=== PATIENT | female | born 1995 | race Two or more races ===

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

== ENCOUNTER → 2019-06-13 | Emergency (ER) | payer BC, MEDICAID ==
[~2019-06-13] VITALS: Ht 157.5 cm; Wt 78.0 kg
[~2019-06-13] MED LIST: ALBUTEROL SULF 2.5 MG/0.5ML(0.5%) NEB SOLN NEB ONE; methylPREDNISolone SOD SUCC 125 MG/2 ML VL IM ONE
[2019-06-14 00:34] VITALS: BP 106/55
== END | disposition home or self-care (01) ==
LOC: ER 22:33
DX: T78.40XA Allergy, unspecified, initial encounter (principal); T50.905A Adverse effect of unspecified drugs, medicaments and biological substances, initial encounter; E78.5 Hyperlipidemia, unspecified; Z88.0 Allergy status to penicillin; Z91.018 Allergy to other foods; Z88.8 Allergy status to other drugs, medicaments and biological substances; X58.XXXA Exposure to other specified factors, initial encounter; Y92.89 Other specified places as the place of occurrence of the external cause
CPT/HCPCS: 94640; 96372; 99283; J2930

== ENCOUNTER 2021-03-07 15:51 | Emergency (ER) | payer BC, MEDICAID ==
[~2021-03-07] VITALS: Ht 157.5 cm; Wt 83.9 kg
[2021-03-07 17:17] VITALS: BP 134/84
[2021-03-07] MEDS ORDERED: IBUP800T27 PO (18:10)
== END 2021-03-07 18:15 | disposition home or self-care (01) ==
LOC: ER 15:51
DX: S16.1XXA Strain of muscle, fascia and tendon at neck level, initial encounter (principal); Z88.0 Allergy status to penicillin; V43.62XA Car passenger injured in collision with other type car in traffic accident, initial encounter; Y93.89 Activity, other specified; Y92.488 Other paved roadways as the place of occurrence of the external cause; Y99.8 Other external cause status
CPT/HCPCS: 72040

== ENCOUNTER → 2022-12-23 | Outpatient (CLI) | payer MEDICAID ==
[~2022-12-23] MED LIST changes: -ALBUTEROL SULF 2.5 MG/0.5ML(0.5%) NEB SOLN NEB ONE; +IBUP-1456 PO; -methylPREDNISolone SOD SUCC 125 MG/2 ML VL IM ONE
[2022-12-23 10:48] LABS: Basophils # (auto) 0 10 ^3/uL (0-0.2); Basophils % (auto) 0.3 % (0.0-2.0); Eosinophils # (auto) 0.1 10 ^3/uL (0-0.8); Hematocrit 41.5 % (36.0-46.0); Lymphocytes # (auto) 2.2 10 ^3/uL (0.4-5.4); Mean Corpuscular Hemoglobin 29.4 pg (28.0-32.0); Mean Corpuscular Hgb Conc. 33.8 g/dL (32.0-36.0); Mean Corpuscular Volume 87.1 fL (80.0-100.0); Monocytes # (auto) 0.4 10 ^3/uL (0-1.3); Monocytes % (auto) 4.8 % (0.0-12.0); Neutrophils # (auto) 6.2 10 ^3/uL (1.6-8.6); Neutrophils % (auto) 68.9 % (37.0-80.0); Nucleated Red Blood Cells % 0.2 %; Red Blood Cells 4.76 10^6/uL (4.0-5.20); Red Cell Distribution Width 13.7 % (11.8-14.3)
[2022-12-23 11:28] LABS: Amphetamine Screen, Urine Neg (NEGATIVE); Barbiturate Scree,Urine Neg (NEGATIVE); Benzodiazephine Screen, Urine Neg (NEGATIVE); Cannabinoid Screen, Urine Neg (NEGATIVE); Cocaine Screen, Urine Neg (NEGATIVE); Opiate Scree,Urine Neg (NEGATIVE); Phencyclidine Screen, Urine Neg (NEGATIVE)
[2022-12-24 07:06] LABS: RPR Non Reactive (Non Reactive)
[2022-12-24 22:06] LABS: Chlamydia Trachomatis, NAA Negative (Negative); Neisseria gonorrhoeae, NAA Negative (Negative)
[2022-12-26 04:06] LABS: QuantiFERON-TB Gold Plus Negative (Negative)
== END | disposition home or self-care (01) ==
LOC: LAB 10:18
PROVIDERS: ATTEND Obstetrics & Gynecology
DX: Z34.80 Encounter for supervision of other normal pregnancy, unspecified trimester (principal); N39.0 Urinary tract infection, site not specified; Z36.0 Encounter for antenatal screening for chromosomal anomalies; Z31.430 Encounter of female for testing for genetic disease carrier status for procreative management; Z3A.00 Weeks of gestation of pregnancy not specified
CPT/HCPCS: 36415; 80307; 83036; 84702; 85025; 86592; 86703; 86762; 86850; 86900; 86901; 87086; 87340

== ENCOUNTER 2023-07-19 11:15 | Observation (INO) | payer MEDICAID ==
[~2023-07-19] VITALS: Ht 157.5 cm; Wt 86.2 kg
[2023-07-19 12:34] LABS: Basophils # (auto) 0 10 ^3/uL (0-0.2); Basophils % (auto) 0.2 % (0.0-2.0); Eosinophils # (auto) 0 10 ^3/uL (0-0.8); Eosinophils % (auto) 0.5 % (0.0-7.0); Hematocrit 41.5 % (36.0-46.0); Hemoglobin 14.4 g/dL (12.2-16.2); Lymphocytes # (auto) 1.7 10 ^3/uL (0.4-5.4); Lymphocytes % (auto) 21.1 % (10.0-50.0); Mean Corpuscular Hemoglobin 31.3 pg (28.0-32.0); Mean Corpuscular Hgb Conc. 34.6 g/dL (32.0-36.0); Mean Corpuscular Volume 90.6 fL (80.0-100.0); Monocytes # (auto) 0.5 10 ^3/uL (0-1.3); Monocytes % (auto) 6.2 % (0.0-12.0); Neutrophils # (auto) 5.6 10 ^3/uL (1.6-8.6); Red Blood Cells 4.59 10^6/uL (4.0-5.20); Red Cell Distribution Width 15.3 % (11.8-14.3); White Blood Cell 7.8 10^3/uL (4.4-10.8)
[2023-07-19 12:49] LABS: Alanine Aminotransferase 12 U/L (7-40); Albumin 3.6 g/dL (3.2-4.8); Alkaline Phosphatase 151 U/L (46-116); Anion Gap 11 (5-15); Aspartate Aminotransferase 9 U/L (13-40); BUN/Creatinine Ratio 15.8 (10.0-20.0); Bilirubin, Total 0.6 mg/dL (0.2-1.0); Blood Urea Nitrogen 6 mg/dL (9-23); Calcium 9.1 mg/dL (8.7-10.4); Carbon Dioxide 20 mmol/L (20-30); Chloride 107 mmol/L (98-107); Glucose 85 mg/dL (74-106); INR 0.95 (0.9-1.15); Partial Thromboplastin Time 29.1 SEC (24.5-34.5); Potassium 3.7 mmol/L (3.5-5.1); Prothrombin Time 10.1 sec (9.3-11.8); Sodium 138 mmol/L (136-145); Total Protein 6.3 g/dL (5.7-8.2); Uric Acid 5.9 mg/dL (3.1-7.8)
[2023-07-19 13:20] LABS: Protein, Urine < 6.0 mg/dL (0.0-11.9)
[2023-07-19 13:23] LABS: Creatinine, Urine 18.23 mg/dL (30.0-125.0); Urine Protein/Creatinine Ratio 0.33
[2023-07-19 13:24] LABS: Urine Bacteria MANY /hpf (None Seen); Urine Blood Negative /uL (Negative); Urine Clarity Turbid (Clear); Urine Protein, UAD Negative (Negative); Urine Specific Gravity 1.004 (1.001-1.035); Urine Urobilinogen Normal (Negative); Urine WBC 7 /hpf (0 - 5); Urine pH 5.5 (5.0-9.0)
[2023-07-19 13:33] LABS: Urine Color STRAW (Yellow)
[2023-07-19] MEDS: LACTATED RINGER'S 1,000 ML IV ONE (14:05)
== END 2023-07-19 14:20 | disposition home or self-care (01) ==
LOC: LDRP 11:15 → UNDOADMOB 11:15 → LDRP 11:27 → UNDODISOB 14:20
PROVIDERS: ADMIT Obstetrics & Gynecology; ATTEND Obstetrics & Gynecology
DX: O24.419 Gestational diabetes mellitus in pregnancy, unspecified control (principal); O99.283 Endocrine, nutritional and metabolic diseases complicating pregnancy, third trimester; E86.0 Dehydration; O21.2 Late vomiting of pregnancy; O26.893 Other specified pregnancy related conditions, third trimester; R03.0 Elevated blood-pressure reading, without diagnosis of hypertension; N89.8 Other specified noninflammatory disorders of vagina; Z3A.38 38 weeks gestation of pregnancy; Z88.0 Allergy status to penicillin; Z91.018 Allergy to other foods; Z88.8 Allergy status to other drugs, medicaments and biological substances
CPT/HCPCS: 36415; 59025; 80053; 81001; 81002; 82570; 82948; 82962; 84156; 84550; 85025; 85379; 85610; 85730; 94760; 96360; 96361; G0378

== ENCOUNTER 2023-07-22 19:55 | Inpatient (IN) | payer MEDICAID ==
[~2023-07-22] VITALS: Ht 157.5 cm; Wt 90.7 kg
[2023-07-22] MEDS ORDERED: METF-929 PO (20:34)
[2023-07-22] MEDS ORDERED: PREN27TA7 OR (20:35)
[2023-07-22] MEDS: ACETAMINOPHEN 500 MG TAB PO ONE (20:56)
[2023-07-22 21:12] LABS: Basophils # (auto) 0 10 ^3/uL (0-0.2); Basophils % (auto) 0.5 % (0.0-2.0); Eosinophils # (auto) 0.1 10 ^3/uL (0-0.8); Eosinophils % (auto) 0.9 % (0.0-7.0); Hematocrit 40.4 % (36.0-46.0); Hemoglobin 14.4 g/dL (12.2-16.2); Lymphocytes # (auto) 2.1 10 ^3/uL (0.4-5.4); Lymphocytes % (auto) 22.3 % (10.0-50.0); Mean Corpuscular Hemoglobin 31.9 pg (28.0-32.0); Mean Corpuscular Hgb Conc. 35.5 g/dL (32.0-36.0); Mean Corpuscular Volume 89.8 fL (80.0-100.0); Monocytes # (auto) 0.7 10 ^3/uL (0-1.3); Monocytes % (auto) 7.2 % (0.0-12.0); Neutrophils # (auto) 6.6 10 ^3/uL (1.6-8.6); Neutrophils % (auto) 69.1 % (37.0-80.0); Red Cell Distribution Width 15.2 % (11.8-14.3); White Blood Cell 9.5 10^3/uL (4.4-10.8)
[2023-07-22 21:26] LABS: INR 0.96 (0.9-1.15); Partial Thromboplastin Time 29.5 SEC (24.5-34.5); Prothrombin Time 10.2 sec (9.3-11.8)
[2023-07-22 21:29] LABS: Urine Bacteria FEW /hpf (None Seen); Urine Blood Negative /uL (Negative); Urine Clarity Clear (Clear); Urine Color Colorless (Yellow); Urine Protein, UAD Negative (Negative); Urine Specific Gravity 1.002 (1.001-1.035); Urine Urobilinogen Normal (Negative); Urine WBC 1 /hpf (0 - 5); Urine pH 6.5 (5.0-9.0)
[2023-07-22 21:35] LABS: Alanine Aminotransferase 12 U/L (7-40); Albumin 3.7 g/dL (3.2-4.8); Alkaline Phosphatase 148 U/L (46-116); Anion Gap 12 (5-15); Aspartate Aminotransferase 11 U/L (13-40); Bilirubin, Total 0.6 mg/dL (0.2-1.0); Blood Urea Nitrogen 7 mg/dL (9-23); Calcium 9.1 mg/dL (8.7-10.4); Carbon Dioxide 19 mmol/L (20-30); Chloride 107 mmol/L (98-107); Glucose 87 mg/dL (74-106); Potassium 3.7 mmol/L (3.5-5.1); Sodium 138 mmol/L (136-145); Total Protein 6.3 g/dL (5.7-8.2); Uric Acid 5.1 mg/dL (3.1-7.8)
[2023-07-22 21:41] LABS: Protein, Urine < 6.0 mg/dL (0.0-11.9)
[2023-07-22 21:43] LABS: Creatinine, Urine 5.96 mg/dL (30.0-125.0); Urine Protein/Creatinine Ratio 1.01
[2023-07-22] MEDS ORDERED: BUTORPHANOL TARTRATE 2 MG/1 ML VIAL IV PRN ×2 (22:15)
[2023-07-22] MEDS: LACTATED RINGER'S 1,000 ML IV SCH (22:50)
[2023-07-22 23:00] LABS: Amphetamine Screen, Urine Neg (NEGATIVE); Barbiturate Scree,Urine Neg (NEGATIVE); Benzodiazephine Screen, Urine Neg (NEGATIVE); Cocaine Screen, Urine Neg (NEGATIVE); Opiate Scree,Urine Neg (NEGATIVE)
[2023-07-22 23:01] LABS: Cannabinoid Screen, Urine Neg (NEGATIVE); Phencyclidine Screen, Urine Neg (NEGATIVE)
[2023-07-22] MEDS: LACTATED RINGER'S 1,000 ML IV ONE (23:40)
[2023-07-23] VITALS (9 sets, daily range): BP systolic 112–128; BP diastolic 58–83; PULSE 73–99; RESP 16–18; TEMP 98.6–99.3; O2SAT 95–97
[2023-07-23] MEDS: ACCU-CHEK COMFORT CURVE STRIP VI SCH
[2023-07-23] MEDS: TERBUTALINE SULFATE 1 MG/ML 1ML VIAL SC SCH (00:09)
[2023-07-23] MEDS: LACTATED RINGER'S 1,000 ML IV ONE (04:15)
[2023-07-23] MEDS ORDERED: fentaNYL CITRATE 100 MCG/2 ML VL ONE (06:57)
[2023-07-23] MEDS ORDERED: MORPHINE SULF PF 5 MG/10 ML VIAL ONE (06:57)
[2023-07-23] MEDS ORDERED: OXYTOCIN 10UNIT/ML 1ML VIAL ONE (06:59)
[2023-07-23] MEDS ORDERED: ePHEDrine SULFATE 50 MG/ML AMP ONE (06:59)
[2023-07-23] MEDS ORDERED: KETOROLAC TROMETH 30 MG/ML 1ML VIAL ONE (07:00)
[2023-07-23] MEDS: CLINDAMYCIN 900MG IV 50 ML IV ONE (07:00)
[2023-07-23] MEDS ORDERED: ONDANSETRON HCL 4 MG/2 ML VIAL ONE (07:00)
[2023-07-23] MEDS ORDERED: SODIUM CHLORIDE LOCK 10 ML ONE (07:03)
[2023-07-23] MEDS: LACT. RINGERS/OXYTOCIN 20UNITS 1,000 ML IV ONE (07:15)
[2023-07-23] MEDS ORDERED: ONDANSETRON HCL 4 MG/2 ML VIAL IV PRN ×2 (07:15→08:15)
[2023-07-23] MEDS ORDERED: IBUP-1456 PO (08:13)
[2023-07-23] MEDS ORDERED: DOCU-94 PO (08:13)
[2023-07-23] MEDS ORDERED: HYDR-4902 PO (08:13)
[2023-07-23] MEDS ORDERED: HYDROmorphone HCL 2 MG/ML VL/or syr IV PRN (08:15)
[2023-07-23] MEDS ORDERED: NALOXONE HCL 0.4 MG/ML VIAL IV PRN (08:15)
[2023-07-23] MEDS ORDERED: DexAMETHasone SOD PHOS 10MG/1ML VIAL INJ IV PRN (08:15)
[2023-07-23] MEDS: ONDANSETRON HCL 4 MG/2 ML VIAL IV PRN (10:09)
[2023-07-23] MEDS: ACETAMINOPHEN IV 1000 MG/100ML (10MG/ML) IV PRN ×2 (10:10→17:59)
[2023-07-23] MEDS: LACTATED RINGER'S 1,000 ML IV SCH (14:10)
[2023-07-23] MEDS: CLINDAMYCIN 900MG IV 50 ML IV SCH (18:03)
[2023-07-23 22:18] LABS: Basophils # (auto) 0 10 ^3/uL (0-0.2); Basophils % (auto) 0.1 % (0.0-2.0); Eosinophils # (auto) 0 10 ^3/uL (0-0.8); Eosinophils % (auto) 0.4 % (0.0-7.0); Hematocrit 37.7 % (36.0-46.0); Lymphocytes # (auto) 1.6 10 ^3/uL (0.4-5.4); Lymphocytes % (auto) 17.4 % (10.0-50.0); Mean Corpuscular Hemoglobin 31.2 pg (28.0-32.0); Mean Corpuscular Hgb Conc. 34.6 g/dL (32.0-36.0); Mean Corpuscular Volume 90.4 fL (80.0-100.0); Monocytes # (auto) 0.6 10 ^3/uL (0-1.3); Monocytes % (auto) 6.5 % (0.0-12.0); Neutrophils # (auto) 6.8 10 ^3/uL (1.6-8.6); Neutrophils % (auto) 75.6 % (37.0-80.0); Nucleated Red Blood Cells % 0.1 %; Red Blood Cells 4.17 10^6/uL (4.0-5.20); Red Cell Distribution Width 15.5 % (11.8-14.3)
[2023-07-24] VITALS (10 sets, daily range): BP systolic 97–132; BP diastolic 52–85; PULSE 81–109; RESP 16–20; TEMP 98.3–99; O2SAT 94–100
[2023-07-24] MEDS ORDERED: SIMETHICONE 80 MG CHEWABLE TABLET PO PRN (06:00)
[2023-07-24] MEDS ORDERED: BISACODYL 10 MG RECT SUPP PR PRN (06:00)
[2023-07-24] MEDS ORDERED: HYDROcodone-ACET 5/325MG TAB PO PRN (06:00)
[2023-07-24 06:13] LABS: Basophils # (auto) 0 10 ^3/uL (0-0.2); Basophils % (auto) 0.3 % (0.0-2.0); Eosinophils # (auto) 0 10 ^3/uL (0-0.8); Eosinophils % (auto) 0.6 % (0.0-7.0); Hematocrit 35.4 % (36.0-46.0); Hemoglobin 12.3 g/dL (12.2-16.2); Lymphocytes # (auto) 1.4 10 ^3/uL (0.4-5.4); Lymphocytes % (auto) 18.5 % (10.0-50.0); Mean Corpuscular Hemoglobin 31.5 pg (28.0-32.0); Mean Corpuscular Hgb Conc. 34.9 g/dL (32.0-36.0); Mean Corpuscular Volume 90.2 fL (80.0-100.0); Monocytes # (auto) 0.5 10 ^3/uL (0-1.3); Neutrophils # (auto) 5.7 10 ^3/uL (1.6-8.6); Neutrophils % (auto) 73.6 % (37.0-80.0); Nucleated Red Blood Cells % 0.1 %; Red Blood Cells 3.92 10^6/uL (4.0-5.20); Red Cell Distribution Width 15.4 % (11.8-14.3); White Blood Cell 7.7 10^3/uL (4.4-10.8)
[2023-07-24] MEDS: HYDROcodone-ACET 5/325MG TAB PO PRN (08:13)
[2023-07-24] MEDS: DOCUSATE CALCIUM 240 MG CAP PO SCH (12:55)
[2023-07-24] MEDS: IBUPROFEN 800 MG TAB PO PRN (16:47)
[2023-07-24] MEDS: DOCUSATE SOD 100 MG CAP PO SCH (21:53)
[2023-07-25 03:00] VITALS: BP 113/80; PULSE 96; RESP 18; TEMP 98.9; O2SAT 96
[2023-07-25 07:00] VITALS: BP 116/62; PULSE 81; RESP 16; TEMP 98.6; O2SAT 98
[2023-07-26 05:08] LABS: RPR Non Reactive (Non Reactive)
[2023-07-26 19:06] LABS: Treponema pallidum Ab (FTA-Ab) Non Reactive (Non Reactive)
== END 2023-07-25 11:30 | disposition home or self-care (01) | DRG 540 ==
LOC: UNDOADMOB 19:55 → LDRP 19:55 → UNDOADMOB 20:30 → LDRP 20:30 → INTOOBSV 22:15 → LDRP 22:15 → UNDOADMOB 22:15 → OBSVTOIN 22:15 → LDRP 22:55 → UNDOADMOB 07-24 16:19 → INTOOBSV 07-24 16:19 → OBSVTOIN 07-24 16:19 → LDRP 07-25 04:06 → UNDODISIN 07-25 11:30
PROVIDERS: ADMIT Obstetrics & Gynecology; ATTEND Obstetrics & Gynecology
PROC: 10D00Z1 Extraction of Products of Conception, Low, Open Approach (ICD-10-PCS; principal; 2023-07-23 07:06)
DX: O13.4 Gestational [pregnancy-induced] hypertension without significant proteinuria, complicating childbirth (principal); O14.94 Unspecified pre-eclampsia, complicating childbirth; O24.425 Gestational diabetes mellitus in childbirth, controlled by oral hypoglycemic drugs; O99.214 Obesity complicating childbirth; E66.01 Morbid (severe) obesity due to excess calories; O34.211 Maternal care for low transverse scar from previous cesarean delivery; Z37.0 Single live birth; Z3A.38 38 weeks gestation of pregnancy; Z88.6 Allergy status to analgesic agent; Z88.0 Allergy status to penicillin; Z88.8 Allergy status to other drugs, medicaments and biological substances; Z91.018 Allergy to other foods; Z79.899 Other long term (current) drug therapy
CPT/HCPCS: 36415; 59025; 76818; 80053; 80307; 81001; 81002; 82570; 82948; 82962; 83036; 84112; 84156; 84550; 85025; 85610; 85730; 86592; 86850; 86900; 86901; 94760; 94762; 96360; 96361; 96366; 96372; G0378; J0131; J1885; J2405; J3490